=== PATIENT | female | born 1955 | race Caucasian/White ===

== ENCOUNTER 2021-07-21 23:59 | Emergency (ER) | payer OTHER ==
[~2021-07-21] VITALS: Ht 162.6 cm; Wt 67.1 kg
[~2021-07-21 23:59] MED LIST: ASPI-1822 PO; LISI-486 PO; METF500T PO; SIMV40TA1 PO
[2021-07-22 00:06] VITALS: BP 170/82
--- NOTE | 2021-07-22 00:06 | NUR ---
TO BED AMBULATORY
[2021-07-22] MEDS ORDERED: NITROGLYCERIN 0.4 MG TAB SL ONE (00:10)
[2021-07-22] MEDS ORDERED: ASPIRIN 325 MG TAB PO ONE (00:10)
--- NOTE | 2021-07-22 00:19 | NUR ---
66 YO/F BIB DAUGHTER W C/O L SIDED CHEST PAIN PRESSURE LIKE 02/18 NON-RAD X3 DAYS CONSTANT. PT REPORTS PAIN WORSENS W ACTIVITY. PT DENIES ANY SOB, N/V/D. PT ALSO C/O R ARM PAIN X.5 YEARS UNKNOWN SOURCE BUT RECEIVES PHYSICAL THERAPY FOR IT. PT DENIES ANY TRAUMA. VSS. PT AMBULATORY. PT LAYING IN BED LOCKED IN LOWEST POSITION W X1 SIDERAIL UP. BREATHING EVEN AND UNLBAORED. NAD NOTED, WILL CONTINUE TO MONITOR. DAUGHTER AT BEDSIDE. PMH:HTN, PREDIABETIC NKA
--- NOTE | 2021-07-22 00:28 | NUR ---
PT DENIES ONGOING CHEST PAIN BUT REPORTS ONGOING PRESSURE SENSATION.
[2021-07-22 00:49] LABS: BASOPHILS % (AUTO) 0.7 % (0.0-2.0); EOSINOPHILS # (AUTO) 0.1 K/uL (0-0.4); EOSINOPHILS % (AUTO) 2.3 % (0.0-4.0); HEMATOCRIT 36.6 % (36-48); HEMOGLOBIN 12.6 g/dL (12.0-16.0); LYMPHOCYTES # (AUTO) 1.9 K/uL (2.5-16.5); LYMPHOCYTES % (AUTO) 35.3 % (20.5-51.1); MEAN CORPUSCULAR HEMOGLOBIN 30 pg (27-31); MEAN CORPUSCULAR HGB CONC 34 g/dL (33-37); MEAN CORPUSCULAR VOLUME 87.4 fL (80-94); MONOCYTES # (AUTO) 0.4 K/uL (0.8-1.0); MONOCYTES % (AUTO) 8.1 % (1.7-9.3); NEUTROPHILS # (AUTO) 2.9 K/uL (1.8-7.7); NEUTROPHILS % (AUTO) 53.6 % (42.2-75.2); PLATELET COUNT (AUTO) 279 K/uL (140-450); RED BLOOD CELL COUNT(AUTO) 4.19 MIL/uL (4.20-5.40); RED CELL DISTRIBUTION WIDTH 13.9 % (11.6-13.7); WHITE BLOOD COUNT (AUTO) 5.3 K/uL (4.8-10.8)
[2021-07-22 01:10] LABS: ALBUMIN 3.4 g/dL (3.4-5.0); ANION GAP 10.3 (8-16); CARBON DIOXIDE 28.8 mmol/L (21-32); CREATININE 0.7 mg/dL (0.6-1.3); POTASSIUM 4.1 mmol/L (3.5-5.1); TOTAL BILIRUBIN 0.2 mg/dL (0.0-1.0)
[2021-07-22 01:21] LABS: PROTHROMBIN TIME 9.4 secs (10.8-13.4)
--- NOTE | 2021-07-22 02:24 | NUR ---
PT TROP BLOOD DRAWN AND SENT TO LAB.
[2021-07-22 02:49] VITALS: BP 141/57
--- NOTE | 2021-07-22 02:49 | NUR ---
Patient discharged with v/s stable. Written and verbal after care instructions given and explained. Patient verbalized understanding. Ambulatory with to car. All questions addressed prior to discharge. Advised to follow up with PMD.
== END 2021-07-22 02:40 | disposition home or self-care (01) ==
LOC: MED 23:59
DX: R07.89 Other chest pain (principal); E11.65 Type 2 diabetes mellitus with hyperglycemia; I10 Essential (primary) hypertension; Z79.84 Long term (current) use of oral hypoglycemic drugs; Z79.82 Long term (current) use of aspirin; Z79.899 Other long term (current) drug therapy; Z98.890 Other specified postprocedural states; Z86.73 Personal history of transient ischemic attack (TIA), and cerebral infarction without residual deficits
CPT/HCPCS: 36415; 71045; 80053; 84484; 85025; 85610; 85730; 93005; 99285; Q0092